=== PATIENT | female | born 1995 | race Caucasian/White ===

== ENCOUNTER 2021-09-06 22:35 | Emergency (ER) | payer OTHER ==
[~2021-09-06] VITALS: Ht 157.5 cm; Wt 71.2 kg
[2021-09-06] MEDS ORDERED: LEVO-T100 MCG PO (22:44)
[2021-09-06] MEDS ORDERED: PRENA1 CHEW TA1.4 MG PO (22:45)
[2021-09-06] MEDS ORDERED: TROKENDI XR50 MG PO (22:45)
[2021-09-06] MEDS ORDERED: PANTOPRAZOLE SO40 M2 PO (22:45)
[2021-09-06] MEDS ORDERED: VIBERZI100 MG PO (22:46)
== END 2021-09-07 02:12 ==
LOC: ER 22:35
DX: K59.00 Constipation, unspecified (principal)